=== PATIENT | female | born 1960 | race American Indian/Alaskan Native ===

== ENCOUNTER → 2021-07-07 17:25 | Emergency (ER) | payer MEDICARE | END | disposition left against medical advice (07) | LOC: ED 17:25 | DX: Z53.21 Procedure and treatment not carried out due to patient leaving prior to being seen by health care provider (principal) ==

== ENCOUNTER 2021-07-09 15:35 | Emergency (ER) | payer MEDICARE ==
[2021-07-09] MEDS ORDERED: KETOROLAC 60 MG/2 ML INJ IM ONE (15:57)
--- NOTE | 2021-07-09 15:58 | Emergency Department Report ---
ED Lower Extremity HPI - General Chief Complaint: Extremity Injury, Lower Stated Complaint: RT KNEE PAIN Time Seen by Provider: 07/09/21 15:54 Source: patient Mode of arrival: Wheelchair Limitations: No Limitations - History of Present Illness Initial Comments: 60 yo AA comes to ER with knee pain. Has been having off and on for weeks. She has had in the past and did not follow up with ortho as instructed. no fall or trauma. No hx of gout. Pt is ambulatory ER. She is requesting that the fluid be drained from her knee. Staffed with Dr Wong- no need for drainage of effusion in ER. Complaint: hip injury, other -: Gradual, days(s) Place: home Severity: mild Severity scale (0 -10): 3 Improves With: immobilization Worsens With: movement - Related Data Previous Rx's Medication Instructions Recorded Last Taken Type traMADoL [Ultram] 50 mg PO Q6HR PRN #10 tablet 07/09/21 Unknown Rx Allergies Allergy/AdvReac Type Severity Reaction Status Date / Time No Known Allergies Allergy Verified 07/09/21 15:51 ED Review of Systems ROS: Stated complaint: RT KNEE PAIN Other details as noted in HPI Comment: All other systems reviewed and negative ED Past Medical Hx - Past Medical History Previous Medical History?: Yes Hx Hypertension: Yes - Surgical History Past Surgical History?: No - Family History Family history: no significant - Social History Smoking Status: Never Smoker Substance Use Type: None - Medications Home Medications: Home Medications Medication Instructions Recorded Confirmed Last Taken Type traMADoL [Ultram] 50 mg PO Q6HR PRN #10 tablet 07/09/21 Unknown Rx ED Physical Exam - General Limitations: No Limitations General appearance: alert, in no apparent distress - Head Head exam: Present: atraumatic, normocephalic - Eye Eye exam: Present: normal appearance - ENT ENT exam: Present: mucous membranes moist - Neck Neck exam: Present: normal inspection - Respiratory Respiratory exam: Present: normal lung sounds bilaterally. Absent: respiratory distress - Cardiovascular Cardiovascular Exam: Present: regular rate, normal rhythm. Absent: systolic murmur, diastolic murmur, rubs, gallop - GI/Abdominal GI/Abdominal exam: Present: soft, normal bowel sounds - Extremities Exam Extremities exam: Present: normal inspection - Expanded Lower Extremity Exam Right Upper Leg exam: Present: normal inspection Knee exam: Present: full ROM, tenderness, swelling, effusion, pain w/ pronation/supination, full knee extension. Absent: abrasion, laceration, ecchymosis, deformity, crepidus, dislocation, erythema Lower Leg exam: Present: normal inspection - Back Exam Back exam: Present: normal inspection - Neurological Exam Neurological exam: Present: alert, oriented X3 - Psychiatric Psychiatric exam: Present: normal affect, normal mood - Skin Skin exam: Present: warm, dry, intact, normal color. Absent: rash ED Course Vital Signs 07/09/21 16:37 Temperature 98.4 F Pulse Rate 84 Respiratory 18 Rate Blood Pressure 151/89 ED Lower Extremity MDM - Medical Decision Making vs normal as manually written by RN pt ambulatory in triage Vital Signs 07/09/21 16:37 Temperature 98.4 F Pulse Rate 84 Respiratory 18 Rate Blood Pressure 151/89 no indication for xray knee immobilizer and crutches given. toradol IM for pain Pt educated on ortho follow up for evaluation and safe removal of fluid if immobilization does not work D/c home with dc plan of care including follow up, activity and medication. pt educated on avoiding prolonged use of immobilizer due to disuse injury. She verbalizes understanding of dc plan of care. - Differential Diagnosis effusion: no trauma/fall Critical care attestation.: If time is entered above; I have spent that time in minutes in the direct care of this critically ill patient, excluding procedure time. ED Disposition Clinical Impression: Knee effusion, right Disposition: 01 HOME / SELF CARE / HOMELESS Is pt being admited?: No Does the pt Need Aspirin: No Condition: Stable Instructions: Knee Effusion Additional Instructions: fall precautions knee immobilizer and crutches rest/ice the knee follow up with ortho MD larry referral below tylenol can be used for pain med as ordered today for severe pain Prescriptions: traMADoL [Ultram] 50 mg PO Q6HR PRN #10 tablet PRN Reason: Pain Referrals: BLAYNE CROUCH MD [Staff Physician] - 3-5 Days Forms: Work/School Release Form(ED) Time of Disposition: 15:58
[2021-07-09 16:44] VITALS: BP 151/89
== END 2021-07-09 17:22 | disposition home or self-care (01) ==
LOC: ED 15:35
DX: M25.461 Effusion, right knee (principal); I10 Essential (primary) hypertension
CPT/HCPCS: 96372; 99283; J1885; 99282

== ENCOUNTER 2022-03-05 13:58 | Outpatient (CLI) | payer MEDICARE ==
--- NOTE | 2022-03-05 15:50 | Magnetic Resonance Report ---
MRI lumbar spine without contrast INDICATION: Back pain TECHNIQUE: Axial and sagittal images were performed FINDINGS: There are endplate changes with disc desiccation in the lower thoracic spine. There is a po sterior disc osteophyte/herniation at T10-T11 with bilateral neuroforaminal narrowing. Modic type jayesh nges are noted. L1-L2: Facet hypertrophy with disc desiccation. No significant neuroforaminal narrowing. L2-L3: Facet hypertrophy and change. Small disc bulge without significant neuroforaminal narrowing. L2-L3: Disc desiccation. Posterior disc bulge asymmetric to the left. There is mild left lateral rece ss narrowing. No severe neuroforaminal narrowing. L4-L5: Minimal anterior listhesis with disc desiccation and broad-based posterior disc bulge. Mild bi lateral lateral recess narrowing with mild canal narrowing. No severe neuroforaminal narrowing. L5-S1: Disc desiccation with endplate change. No significant neuroforaminal narrowing or canal narrow ing. Mild left lateral recess narrowing. Mild facet degenerative change. IMPRESSION: Advanced endplate changes with disc desiccation posterior disc herniation at T10-T11. Significant chele ateral neuroforaminal narrowing. Effacement canal anteriorly is identified. Small posterior disc bulges at several levels throughout the spine with facet arthropathy. Signer Name: Priyank Valencia MD Signed: 03/05/2022 3:46 PM Workstation Name: [id number]
== END 2022-03-05 13:59 | disposition home or self-care (01) ==
LOC: MRI 13:58
PROVIDERS: ATTEND Pain Medicine Interventional Pain Medicine
DX: M47.816 Spondylosis without myelopathy or radiculopathy, lumbar region (principal); M51.26 Other intervertebral disc displacement, lumbar region
CPT/HCPCS: 72148